=== PATIENT | male | born 1995 | race Caucasian/White ===

== ENCOUNTER 2016-12-20 12:41 | Emergency (ER) | payer OTHER ==
[~2016-12-20] VITALS: Ht 175.3 cm; Wt 78.5 kg
[2016-12-20 12:48] VITALS: Ht 175.3 cm; Wt 78.5 kg
[2016-12-20] MEDS ORDERED: ONDANSETRON (ODT) 4 MG TAB ODT STA (13:08)
[2016-12-20] MEDS ORDERED: KETOROLAC 60 MG INJ IM STA (13:08)
[2016-12-20] MEDS ORDERED: IBUP-1542 PO (13:27)
--- NOTE | 2016-12-20 13:31 | ERD ---
ER Documentation Chief Complaint Date/Time DATE: 12/20/16 TIME: 13:28 Chief Complaint Complains of severe headache x4 days HPI This patient is a 21-year-old male brought in by mother complaining of bilateral frontal headache that he has had for 2 days. He has been taking 400 mg of Motrin but it does not help. No trauma. No visual changes. No nausea or vomiting. No photosensitivity. Patient does not wear glasses. ROS All systems reviewed and are negative except as per history of present illness. Medications Home Meds Active Scripts Ibuprofen* (Motrin*) 600 Mg Tab, 600 MG PO Q6, #30 TAB Prov:TANNERKURTIS SIERRA PA-C 12/20/16 Allergies Allergies: Coded Allergies: No Known Allergy (Unverified , 12/20/16) PMhx/Soc History of Surgery: Yes (RT SHOULDER , RT ELBOW ) Anesthesia Reaction: No Hx Neurological Disorder: No Hx Respiratory Disorders: No Hx Cardiac Disorders: No Hx Psychiatric Problems: No Hx Miscellaneous Medical Probl: No Hx Alcohol Use: No Hx Substance Use: No Hx Tobacco Use: No Smoking Status: Never smoker FmHx Family History: No diabetes Physical Exam Vitals Vital Signs Date Time Temp Pulse Resp B/P Pulse Ox O2 Delivery O2 Flow Rate FiO2 12/20/16 12:48 98.4 64 20 137/65 98 Physical Exam INITIAL VITAL SIGNS: Reviewed by me GENERAL: Awake, alert and oriented x 4, well appearing, nontoxic, speaking in full sentences. No acute distress HEAD: Atraumatic EYES: EOMI. PERRL. THROAT: No tonilar erythema or edema. No exudates. Uvula midline. No kissing tonsils. NECK: Supple. No masses. Full range of motion. No meningismus. No midline tenderness. RESPIRATORY: Clear to auscultation bilaterally. Symmetric chest wall rise. No wheezing or rales. No accessory muscle use. CV: Regular rate and rhythm. No murmurs, rubs, or gallops. NEUROLOGIC: Normal mental status and speech. Face is symmetric. Moves all extremities equally. Motor and sensory distally intact. Normal coordination. Ambulates with a strong steady gait. Romberg and pronator drift negative, licensed occupational therapy assistant strength 5 out of 5 bilaterally, finger to nose within normal limits Results 24 hrs Laboratory Tests Test 12/20/16 13:22 Bedside Glucose 91mg/dL Current Medications Medications (Trade) Dose Ordered Sig/Gaudencio Route PRN Reason Start Time Stop Time Status Last Admin Dose Admin Ketorolac Tromethamine (Toradol) 60 mg ONCE STAT IM 12/20/16 13:08 12/20/16 13:11 DC 12/20/16 13:16 Ondansetron HCl (Zofran Odt) 4 mg ONCE STAT ODT 12/20/16 13:08 12/20/16 13:11 DC 12/20/16 13:16 Procedures/MDM 21-year-old presents with a headache. The differential diagnosis includes but is not limited to subdural hematoma, epidural hematoma, intracerebral hemorrhage , occult trauma, CVA, meningitis, encephalitis, hypertension, tension, migraine , cluster, cervical spine disease, and others. Patient's neurological examination is normal. He is well-appearing in no distress. I have a low suspicion for any acute intracranial abnormality and therefore no CT scan was ordered. I did explain the risks versus benefits of CT scan and patient and parent agree. Patient was given Toradol here in the emergency room he was discharged with ibuprofen. Patient counseled regarding my diagnostic impression and care plan. Prior to discharge all questions answered. Pt agrees with treatment plan and understands strict return precautions. Pt is instructed to follow up with primary care provider within 24- 48 hours. Precautionary instructions provided including instructions to return to the ER if not improving or for any worsening or changing symptoms or concerns. Departure Diagnosis: Primary Impression: Headache Condition: Stable Patient Instructions: Self-Care for Headaches Additional Instructions: Call your primary care doctor TOMORROW for an appointment during the next 1-2 days.See the doctor sooner or return here if your condition worsens before your appointment time. KURTIS TANNER PA-C Dec 20, 2016 13:31
== END 2016-12-20 14:00 | disposition home or self-care (01) ==
LOC: FTE 12:41
DX: R51 Headache (principal)
CPT/HCPCS: 82962; 96372; J1885; Z7502; Z7610

== ENCOUNTER 2016-12-22 19:39 | Emergency (ER) | payer SELFPAY ==
[~2016-12-22 19:39] MED LIST: AMO500 PO; IBUP-1542 PO; PRED50TA PO
[2016-12-23] MEDS ORDERED: CYCL-319 PO (04:58)
[2016-12-23] MEDS ORDERED: HYDR-906 PO (04:58)
[2016-12-23] MEDS ORDERED: IBUP-1542 PO (04:58)
== END 2016-12-22 19:58 | disposition left against medical advice (07) ==
LOC: E/R 19:39
DX: Z53.21 Procedure and treatment not carried out due to patient leaving prior to being seen by health care provider (principal)

== ENCOUNTER 2016-12-23 03:35 | Emergency (ER) | payer OTHER ==
[~2016-12-23] VITALS: Ht 177.8 cm; Wt 80.0 kg
[~2016-12-23 03:35] MED LIST changes: -AMO500 PO; -PRED50TA PO
[2016-12-23 03:38] VITALS: Ht 177.8 cm; Wt 80.0 kg
[2016-12-23] MEDS ORDERED: IBUP-1542 PO (04:58)
[2016-12-23] MEDS ORDERED: HYDR-906 PO (04:58)
[2016-12-23] MEDS ORDERED: CYCL-319 PO (04:58)
--- NOTE | 2016-12-23 05:54 | ERD ---
ER Documentation Chief Complaint Date/Time DATE: 12/23/16 TIME: 05:53 Chief Complaint low back pain x 1 day, denies injury HPI 21-year-old male presents here in emergency department for complete of lower back pain that started yesterday. Patient described pain as sharp pain, 6/10 scale, is worse upon movement accompanied with muscle spasms. Patient denies any injury, denies any numbness or tingling. Patient denies any hematuria or dysuria. Patient did not take any medications to help her symptoms. Patient denies any direct trauma and affected area. ROS All systems reviewed and are negative except as per history of present illness. Medications Home Meds Active Scripts Cyclobenzaprine Hcl* (Cyclobenzaprine Hcl*) 10 Mg Tablet, 10 MG PO TID, #15 TAB Prov:KM LOPES MANAGER [employer] 12/23/16 Hydrocodone/Acetaminophen ([place] 5-325 Tablet) 1 Each Tablet, 1 TAB PO Q6H Y for SEVERE PAIN LEVEL 7-10, #20 TAB Prov:KM LOPES NP 12/23/16 Ibuprofen* (Motrin*) 600 Mg Tab, 600 MG PO Q6H Y for PAIN AND OR ELEVATED TEMP, #30 TAB Prov:KM LOPES NP 12/23/16 Ibuprofen* (Motrin*) 600 Mg Tab, 600 MG PO Q6, #30 TAB Prov:KURTIS TANNER PA-C 12/20/16 Allergies Allergies: Coded Allergies: No Known Allergy (Unverified , 12/20/16) PMhx/Soc History of Surgery: Yes (RT SHOULDER , RT ELBOW; RT HIP.) Anesthesia Reaction: No Hx Neurological Disorder: No Hx Respiratory Disorders: No Hx Cardiac Disorders: No Hx Psychiatric Problems: No Hx Miscellaneous Medical Probl: No Hx Alcohol Use: No Hx Substance Use: No Hx Tobacco Use: No Smoking Status: Never smoker FmHx Family History: No coronary disease, No diabetes, No other Physical Exam Vitals Vital Signs Date Time Temp Pulse Resp B/P Pulse Ox O2 Delivery O2 Flow Rate FiO2 12/23/16 03:38 97.7 76 20 119/76 100 Physical Exam GENERAL: The patient is well developed and appropriate for usual state of health, in no apparent distress. CHEST: Clear to auscultation bilaterally. There are no rales, wheezes or rhonchi. HEART: Regular rate and rhythm. No murmurs, clicks, rubs or gallops. No S3 or S4. ABDOMEN: Soft, nontender and nondistended. Good bowel sounds. No rebound or guarding. No gross peritonitis. No gross organomegaly or masses. No Diamond sign or McBurney point tenderness. BACK: No midline or flank tenderness. Spasms noted in the paraspinal aspect of the lumbar spine. Able to do full range of motion without any restriction. EXTREMITIES: Equal pulses bilaterally. There is no peripheral clubbing, cyanosis or edema. No focal swelling or erythema. Full range of motion. Grossly neurovascularly intact. NEURO: Alert and oriented. Cranial nerves 2-12 intact. Motor strength in all 4 extremities with 5/5 strength. Sensation grossly intact. Normal speech and gait. SKIN: There is no apparent rash or petechia. The skin is warm and dry. HEMATOLOGIC AND LYMPHATIC: There is no evidence of excessive bruising or lymphedema. No gross cervical, axillary, or inguinal lymphadenopathy. Procedures/MDM Medical Decision Making: Patient's pain is most likely consistent with a back strain. There is no suspicion for neurovascular compromise. Patient has intact sensation and circulation of the affected extremity and distal extremities. No incontinence, no suspicion for cauda equina syndrome, no saddle anesthesia, no symptoms of any acute bacterial infection, no symptoms of any perirectal abscesses, pilonidal cyst.There is low suspicion for septic arthritis. Patient does not have any fever. No symptoms of any aortic dissection or aortic aneurysm. Radiology exam not indicated at this time. Disposition: Home. Patient is given prescription for ibuprofen for mild to moderate pain, [place] for severe pain, Flexeril for muscle spasm. Patient was advised to avoid heavy lifting , apply warm compresses on affected area. Patient was advised that if symptoms are worse, numbness, tingling, high fever, unable to move joint, worsening symptoms, to return to emergency department immediately. Otherwise, patient is advised to follow up with the primary care doctor in 5-7 days for reevaluation of symptoms. Departure Diagnosis: Primary Impression: Back pain Back pain location: low back pain Chronicity: acute Back pain laterality: bilateral Sciatica presence: without sciatica Qualified Code: M54.5 - Acute bilateral low back pain without sciatica Condition: Stable Patient Instructions: Back Pain (Acute Or Chronic) Referrals: DESMOND QUIROZ (PCP) KM LOPES NP Dec 23, 2016 05:54
== END 2016-12-23 05:12 | disposition home or self-care (01) ==
LOC: FTE 03:35
DX: M54.5 Low back pain (principal)
CPT/HCPCS: 99284

== ENCOUNTER 2018-09-08 07:05 | Day surgery (SDC) | payer OTHER ==
[~2018-09-08] VITALS: Ht 172.7 cm; Wt 78.9 kg
[2018-09-08] VITALS (15 sets, daily range): BP systolic 98–124; BP diastolic 42–67; PULSE 60–78; RESP 8–18; Ht 172.7 cm; Wt 78.9 kg
--- NOTE | 2018-09-08 06:01 | HPN ---
Date/Time of Note Date/Time of Note DATE: 09/08/18 TIME: 06:01 Interval H&P Admission Note Pt. seen H&P reviewed: No system changes CLAUDIA AVILEZ MD September 08, 2018 06:01
--- NOTE | 2018-09-08 06:04 | OPR ---
Date/Time of Note Date/Time of Note DATE: 09/08/18 TIME: 06:01 Operative Report Procedure Date: September 08, 2018 Preoperative Diagnosis Left hip labral tear with impingement Postoperative Diagnosis 1. Left hip anterior labral tear 2. Left hip cam impingement 3. Left hip capsular laxity Operation/Procedure Performed 1. Left hip arthroscopic labral repair 2. Left hip arthroscopic femoral neck resection Surgeon see signature line Art Sales Consultant Fish Barillas PA-C Anesthesia Type: general Estimated Blood Loss: minimal Transfusion none Specimen None Grafts/Implants See operative note body Complications none Pt Condition Post Procedure: stable Disposition: PACU Procedure Description INDICATIONS FOR PROCEDURE AND SUMMARY: This patient has the clinical problem of femoroacetabular impingement. Essentially, there is an overgrowth of the femoral head and neck junction that is leading to the clinical problem of a torn labrum with its mechanical symptomatology and pain. The surgical procedure involves first a diagnostic arthroscopy and debridement or repair of the labral tear, followed by a separate entrance into the area of the impingement lesion. In addition, the patient has clear degenerative early changes which ultimately may lead to the need for a total hip replacement. He understands this going into the procedure. The hip is divided into two separate compartments termed the central and peripheral compartments. Traditionally, the procedures performed in the central compartment include labral debridement, synovectomy, and chondroplasty. The procedure described as a femoral neck resection includes treatment of the central compartment problems as well as re-positioning the extremity, starting new portals in the peripheral compartment (using fluoroscopic guidance once again), completing a diagnostic arthroscopy of this compartment and then finally resection of the femoral neck impingement lesion that is present. The concept of the procedure is somewhat like the evaluation of the shoulder where the glenohumeral compartment is evaluated, followed by the subacromial compartment. FIRE MEDIC SURGEON: Fish Barillas PA-C was asked to be present at my request as a result of the significant surgical complexity associated with this procedure. Specifically, the arthroscopic resection of the femoral neck requires expert assistance with respect to the positioning of the arthroscope, which is a 70-degree arthroscope, while the surgeon exchanges instruments to perform the resection and labral repair. In my opinion, the assistance offered by a neurosurgical physician assistant is not sufficient as a result of their lack of training with these instruments. Fish should therefore be compensated for his time. PROCEDURE: Following the administration of general anesthesia supplemented with local anesthetic, the patient was placed in the supine position on the [employer] hip traction device. All prominences were properly padded, including the perineum and the ipsilateral arm. Examination of the left hip revealed a range of motion of 5 degrees of internal rotation with 90 of flexion. There was a relatively solid endpoint on testing in this motion. He also had limited external rotation to about 45 degrees again with a solid endpoint. The left hip was prepped and draped in the usual sterile fashion. The leg was then placed in traction. Under fluoroscopic guidance, anterior and anterolateral portals were then established in the central compartment. CENTRAL COMPARTMENT DIAGNOSTIC: Examination revealed an area of grade 4 chondra l delamination in the acetabulum. The area extended from the 1:00 to the 4 o'clock position with about 10 mm into the articular surface of the acetabulum. It was a very large chondral flap. The labrum was disrupted in that entire arc as well. Significant inflammation in the labrum consistent with a chronic tear. The ligamentum teres was moderately synovitic. The femoral cartilage revealed some mild diffuse grade 2 changes including into the peripheral compartment. CENTRAL COMPARTMENT PROCEDURE: The shaver and the ablator were then inserted. A limited capsulotomy was then performed over the area of the labral detachment. The sublabral recess was then cleared of soft tissue and prepared for the repair. The chondral delamination was then addressed with a chondroplasty employing a combination of curettes, jerry and chondral articular picks. A good bleeding bed was established. In the end, the area measured 10 mm into the articular margin from 12:00 to about the 7 o'clock position. Following the resection and preparation, the labral repair was undertaken. Two sutures then passed around the labrum. Each incorporated into a Arthrex Push Lock anchor. The anchors were impacted, and the suture advanced and a solid repair was completed. Flexion of the leg after removal of traction showed a good labral seal. The arthroscopic equipment was then removed. The leg was taken out of traction and repositioned to 45 of flexion with neutral rotation. The anterior portal was then used for entry into the peripheral compartment while using fluoroscopic localization for the appropriate portal position along the femoral neck. PERIPHERAL COMPARTMENT DIAGNOSTIC: Endoscopic examination revealed a good labral seal. Further evaluation revealed the peripheral femoral cartilage be relatively normal with some very mild grade 2 changes. In particular, the more lateral portion was significantly damaged. With regards to a cam lesion, there was a relatively large lesion anterolaterally from about the 12:00 to the 6 o'clock position. There was significant peripheral grade 3 cartilage damage in the femoral head neck junction. PERIPHERAL COMPARTMENT PROCEDURE: Following the diagnostic arthroscopy of the peripheral compartment the impingement lesion was addressed. The soft tissue was resected from around the lesion, including a capsulectomy. A combination of the shaver and an ablator were employed for this purpose. The femoral neck impingement lesion was then completely resected in an arc from 12 o'clock to 6 o'clock. The depth of the resection was approximately 12 mm with a proximal to distal dimension of approximately 15 mm. Following completion of the resection, the leg was then taken through a complete range of motion with the arthroscope in place and confirmation of eradication of the impingement lesion, especially in flexion and internal rotation was documented. The arthroscopic equipment was then removed, following thorough irrigation of the joint to assure that all bony debris was cleared. The wounds were closed using #4-0 Monocryl sutures, followed by a sterile dressing. The patient was then extubated and transported to the recovery room in stable condition, having tolerated the procedure well. CLAUDIA AVILEZ MD September 08, 2018 06:04
[~2018-09-08 07:05] MED LIST changes: +BUPIVACAINE 0.5% (SDV) 30 ML, morphine SULFATE (PF) 8 MG, EPINEPHrine 0.3 MG, KETOROLAC... IRR SCH; +CEFAZOLIN 2 GM/50 ML (PMX) 50 ML IVPB SCH; +CYCL10TA7 PO; +DEXAMETHASONE 1 MG TAB PO SCH; +GABAPENTIN 300 MG CAP PO SCH; +HYDR-4011 PO; +TRANEXAMIC ACID 1GM/100ML(PMX) 100 ML IVPB SCH
[2018-09-08] MEDS ORDERED: LACTATED RINGER'S 1,000 ML IV SCH (08:00)
--- NOTE | 2018-09-08 09:18 | PREAC ---
Date/Time of Note Date/Time of Note DATE: 09/08/18 TIME: 09:16 Anesthesia Eval and Record Evaluation Time Pre-Procedure Interview DATE: 09/08/18 TIME: 09:16 Age 23 Sex male NPO: 8 hrs Preoperative diagnosis Lt Hip Labral tear Planned procedure Lt Hip Arthroscopy, Labral tear repair Past Medical History Past Medical History: None Surgery & Anesthesia Issues No known issue Meds Anticoagulation: No Beta Aidan within 24 hr: No Reason Beta Aidan not given: Pt. not on B-Aidan Discontinued Scripts Cyclobenzaprine Hcl* (Cyclobenzaprine Hcl*) 10 Mg Tablet, 10 MG PO TID, #15 TAB Prov:KM LOPES [employer] DEVELOPER 12/23/16 Hydrocodone/Acetaminophen ([place] 5-325 Tablet) 1 Each Tablet, 1 TAB PO Q6H PRN for SEVERE PAIN LEVEL 7-10, #20 TAB Prov:KM LOPES [employer] DEVELOPER 12/23/16 Ibuprofen* (Motrin*) 600 Mg Tab, 600 MG PO Q6H PRN for PAIN AND OR ELEVATED TEMP, #30 TAB Prov:KM LOPES [employer] DEVELOPER 12/23/16 Ibuprofen* (Motrin*) 600 Mg Tab, 600 MG PO Q6, #30 TAB Prov:KURTIS TANNER PA-C 12/20/16 Current Medications Cefazolin Sodium/ Dextrose 50 ml @ 100 mls/hr PRE-OP IVPB ; Start 09/08/18 at 06:00; Stop 09/08/18 at 16:00 Tranexamic Acid 100 ml @ 200 mls/hr Pre-op IVPB ; Start 09/08/18 at 06:00; Stop 09/08/18 at 16:00 Bupivacaine HCl/ Morphine Sulfate/ Epinephrine/ Ketorolac Tromethamine/ Clonidine/Sodium Chloride/ Vancomycin HCl INTRA-OP IRR ; Start 09/08/18 at 06:00; Stop 09/08/18 at 16:00 Dexamethasone (Decadron) 2 mg ONCE PO Last administered on 09/08/18at 07:56; Admin Dose 2 MG; Start 09/08/18 at 06:00; Stop 09/08/18 at 16:00 Gabapentin (Neurontin) 300 mg ONCE PO Last administered on 09/08/18at 07:55; Admin Dose 300 MG; Start 09/08/18 at 06:00; Stop 09/08/18 at 16:00 Lactated Ringer's 1,000 ml @ 0 mls/hr Q0M IV ; Start 09/08/18 at 08:00 Meds reviewed: Yes Allergies Coded Allergies: No Known Allergy (Unverified , 09/08/18) Allergies Reviewed: Yes Labs/Studies Labs Reviewed: Reviewed by anesthesiologist test: N/A Studies: ECG Pre-procedure Exam Last vitals Vital Signs Date Temp Pulse Resp B/P (MAP) Pulse Ox O2 O2 Flow FiO2 Time Delivery Rate 09/08/18 97.8 60 16 112/62 98 Room Air 08:12 (79) Airway: Adequate mouth opening, Adequate thyromental dist Mallampati: Mallampati II Teeth: Normal Lung: Normal Heart: Normal ASA Physical Status ASA physical status: 1 Emergency: None Planned Anesthetic General/MAC: LMA Planned Pain Management Parenteral pain med, Local by surgeon Pre-operative Attestations Prior to commencing anesthesia and surgery, the patient was re-evaluated, there was verification of: *The patient's identity *The results of appropriate recent lab work and preoperative vital signs *The above evaluation not changing prior to induction *Anesthetic plan, risk benefits, alternative and complications discussed with patient/family; questions answered; patient/family understands, accepts and wishes to proceed. ANDREAS SOTO MD September 08, 2018 09:18
[2018-09-08] MEDS ORDERED: MIDAZOLAM 1 MG/ML 2 ML INJ ONE (09:26)
[2018-09-08] MEDS ORDERED: TRANEXAMIC ACID 1GM/100ML(PMX) 100 ML ONE (10:07)
[2018-09-08] MEDS ORDERED: PROPOFOL 20 ML ONE (10:45)
[2018-09-08] MEDS ORDERED: LIDOCAINE 2% (SDV) 5 ML INJ ONE (10:45)
[2018-09-08] MEDS ORDERED: CEFAZOLIN 1 GM INJ ONE (10:45)
--- NOTE | 2018-09-08 10:45 | PDOCDIS ---
Discharge Instructions DIAGNOSIS Discharge Diagnosis Hip labral tear CONDITION [id number] Patient Condition: [id number] Good HOME CARE INSTRUCTIONS: [id number] Diet Instructions: [id number] Regular ACTIVITY: [id number] Activity Restrictions: [id number] Slowly Increase Activity Keep Limb Elevated [id number] Bathing Restrictions: [id number] Shower FOLLOW UP/APPOINTMENTS Follow-up Plan 2 weeks in the office SCHOOL/WORK RELEASE May return to School/Work with: With Restrictions School/Work Release Comment: Flat weightbearing with crutches for 4 weeks CLAUDIA AVILEZ MD September 08, 2018 10:45
[2018-09-08] MEDS ORDERED: ONDANSETRON 4 MG INJ ONE (10:46)
--- NOTE | 2018-09-08 11:04 | PAC ---
Date/Time of Note Date/Time of Note DATE: 09/08/18 TIME: 11:03 Post-Anesthesia Notes Post-Anesthesia Note Last documented vital signs Vital Signs Date Temp Pulse Resp B/P (MAP) Pulse Ox O2 O2 Flow FiO2 Time Delivery Rate 09/08/18 97.8 60 16 112/62 98 Room Air 08:12 (79) Activity: WNL Respiratory function: WNL Cardiovascular function: WNL Mental status: Baseline Pain reasonably controlled: Yes Hydration appropriate: Yes Nausea/Vomiting absent: Yes Comments BP:112/56, P:88, Spo2:100%, T:98,8 ANDREAS SOTO MD September 08, 2018 11:04
[2018-09-08] MEDS ORDERED: DIPHENHYDRAMINE 50 MG INJ IV PRN (11:30)
[2018-09-08] MEDS ORDERED: MEPERIDINE 25 MG INJ IV PRN (11:30)
[2018-09-08] MEDS ORDERED: KETOROLAC 30 MG INJ IV PRN (11:30)
[2018-09-08] MEDS ORDERED: HYDROmorphONE 1 MG/5 ML IV SYRINGE IV PRN ×2 (11:30)
[2018-09-08] MEDS ORDERED: METOCLOPRAMIDE 10 MG INJ IV PRN (11:30)
[2018-09-08] MEDS ORDERED: FENTAnyl 50 MCG/ML VIAL IV PRN (11:30)
[2018-09-08] MEDS ORDERED: ONDANSETRON 4 MG INJ IV PRN (11:30)
== END 2018-09-08 12:40 | disposition home or self-care (01) ==
LOC: SDS 07:05
PROVIDERS: ATTEND Orthopaedic Surgery
DX: M25.812 Other specified joint disorders, left shoulder (principal); S73.192D Other sprain of left hip, subsequent encounter; X58.XXXD Exposure to other specified factors, subsequent encounter
CPT/HCPCS: 29914; 29916; 73530; J0171; J0690; J0735; J1885; J2250; J2274; J2405; J3010; J3370; Z7512; Z7610